=== PATIENT | male | born 1975 | race Caucasian/White ===

== ENCOUNTER 2017-12-21 05:35 | Emergency (ER) | payer BC ==
[~2017-12-21] VITALS: Ht 188 cm; Wt 117.9 kg
== END 2017-12-21 06:03 | disposition home or self-care (01) ==
LOC: ER 05:35
DX: L29.9 Pruritus, unspecified (principal); I10 Essential (primary) hypertension; F41.9 Anxiety disorder, unspecified
CPT/HCPCS: 99282